=== PATIENT | male | born 1955 | race African-American/Black ===

== ENCOUNTER 2018-04-20 04:03 | Emergency (ER) | payer MEDICAID ==
[~2018-04-20] VITALS: Ht 198.1 cm; Wt 102.1 kg
[~2018-04-20 04:03] MED LIST: AZITHROMYCIN250 MG ORAL; IBUPROFEN600 MG ORAL; NKM; OXYCODONE HCL15 M1 ORAL; TRAMADOL HCL50 MG ORAL; VICODIN 5-5001 EACH PO
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
[2018-04-20 05:20] VITALS: BP 164/86
[2018-04-20] MEDS ORDERED: IBUPROFEN600 MG ORAL (05:20)
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
--- NOTE | 2018-04-20 05:20 | NUR ---
ER DISCHARGE NOTE: Patient is cleared to be discharged per ERMD, pt is aox4, on room air, with stable vital signs. pt was given dc and prescription instructions, pt was able to verbalize understanding, pt id band removed without complications. pt is able to ambulate with steady gait. pt took all belongings.
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
== END 2018-04-20 05:20 | disposition home or self-care (01) ==
LOC: EMR 04:36
DX: S93.402A Sprain of unspecified ligament of left ankle, initial encounter (principal); V43.52XA Car driver injured in collision with other type car in traffic accident, initial encounter; Y92.410 Unspecified street and highway as the place of occurrence of the external cause
CPT/HCPCS: 29515; 99283